=== PATIENT | male | born 1990 | race Caucasian/White ===

== ENCOUNTER 2016-04-15 08:18 | Day surgery (SDC) | payer OTHER ==
[2016-04-08 09:49] LABS: ABSOLUTE EOSINOPHILS # (AUTO) 0.1 10^3/uL (0.0-0.6); ABSOLUTE LYMPHOCYTES (AUTO) 1.8 10^3/uL (0.5-4.7); ABSOLUTE MONOCYTES (AUTO) 0.3 10^3/uL (0.1-1.4); ABSOLUTE NEUT (AUTO) 2.6 10^3/uL (1.7-8.2); BASOPHILS % (AUTO) 0.4 % (0-2); EOSINOPHILS % (AUTO) 1.4 % (0-6); HEMATOCRIT 42.4 % (37.9-51.0); HEMOGLOBIN 14.6 g/dL (13.5-17.0); HGB HCT DIFFERENCE 1.4; MEAN CORPUSCULAR HEMOGLOBIN 29.5 pg (27.0-33.4); MEAN CORPUSCULAR HGB CONC 34.4 g/dL (32.0-36.0); MEAN CORPUSCULAR VOLUME 86 fl (80-97); MONOCYTES % (AUTO) 6.4 % (3-13); RED BLOOD COUNT 4.95 10^6/uL (4.35-5.55); RED CELL DISTRIBUTION WIDTH 12.5 % (11.5-14.0); SEGMENTED NEUTROPHILS % (AUTO) 54.8 % (42-78); WHITE BLOOD COUNT 4.8 10^3/uL (4.0-10.5)
[2016-04-08 10:02] LABS: APPEARANCE,URINE CLEAR; BILIRUBIN,URINE NEGATIVE (NEGATIVE); GLUCOSE, URINE NEGATIVE (NEGATIVE); KETONES,URINE NEGATIVE (NEGATIVE); LEUKOCYTE ESTERASE,URINE NEGATIVE (NEGATIVE); NITRITE,URINE NEGATIVE (NEGATIVE); PROTEIN,URINE NEGATIVE (NEGATIVE); URINE SPECIFIC GRAVITY 1.011; UROBILINOGEN,URINE NEGATIVE mg/dL (<2.0)
[2016-04-08 10:18] LABS: ANION GAP 11 (5-19); BLOOD UREA NITROGEN 11 mg/dL (7-20); CALCIUM 9.5 mg/dL (8.4-10.2); CARBON DIOXIDE 30 mmol/L (22-30); CHLORIDE 103 mmol/L (98-107); CREATININE RESULT 1.05 mg/dL (0.52-1.25); GLUCOSE 89 mg/dL (75-110); POTASSIUM 4.2 mmol/L (3.6-5.0); SODIUM 144.4 mmol/L (137-145)
--- NOTE | 2016-04-08 10:59 | EKG REPORT ---
SEVERITY:- NORMAL ECG - SINUS RHYTHM : Confirmed by: Abbey Crawford 08-Apr-2016 10:58:34
[~2016-04-15 08:18] MED LIST: BUPIVACAINE HCL 0.5 % INJ/PF 30 ML SDV ONE; CEFAZOLIN 2 GM/D5W RTU 2 GM/50 ML RTUPB IV PRN; RINGERS SOLUTION,LACTATED 1,000 ML IV PRN
[2016-04-15] MEDS ORDERED: MEPERIDINE HCL/PF INJ 25 MG/1 ML DISP.SYRIN IV PRN ×2 (09:47→12:56)
[2016-04-15] MEDS ORDERED: FENTANYL CITRATE INJ/PF 100 MCG/2 ML AMPUL IV PRN ×6 (09:47→12:56)
[2016-04-15] MEDS ORDERED: ONDANSETRON HCL INJ/PF 4 MG/2 ML SDV IV PRN ×2 (09:47→12:29)
[2016-04-15] MEDS ORDERED: PROMETHAZINE HCL INJ 25 MG/1 ML VIAL IV PRN ×4 (09:47→12:56)
[2016-04-15] MEDS ORDERED: DIPHENHYDRAMINE HCL 50 MG/ML VIAL IV PRN ×2 (09:47→12:56)
[2016-04-15] MEDS ORDERED: MORPHINE SULFATE 10 MG/ML INJ IV PRN ×3 (09:47→12:56)
[2016-04-15] MEDS ORDERED: DEXMEDETOMIDINE INJ 80 MCG/20 ML VIAL IV ONE (10:44)
[2016-04-15] MEDS ORDERED: MIDAZOLAM 2 MG/2 ML INJ ONE (10:44)
[2016-04-15] MEDS ORDERED: ACETAMINOPHEN 100 ML IV ONE (10:44)
[2016-04-15] MEDS ORDERED: PROPOFOL INJ 200 MG/20 ML VIAL IV ONE (10:44)
[2016-04-15] MEDS ORDERED: FENTANYL CITRATE INJ/PF 250 MCG/5 ML AMPULE ONE (10:44)
[2016-04-15] MEDS ORDERED: OXYCODONE-ACETAMINOPHEN 5-325 MG TABLET PO PRN (12:29)
--- NOTE | 2016-04-15 12:32 | PDOC DISCHARGE SUMMARY ---
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 Sebas Ortiz @ [facility] to be seen in 10-14 days or as scheduled [place]: [place]: [place]: Keep splint clean/dry/intact. Ice and elevate May begin finger range of motion attempting to make full fist. Stool softener of choice when on pain medication. Prescriptions: Oxycodone HCl/Acetaminophen [Percocet 5-325 mg Tablet] 1 - 2 tab PO ASDIR PRN # 50 tablet PRN Reason: Discharge Diet: As Tolerated Respiratory Treatments at Home: Deep Breathing/Coughing Discharge Activity: No Lifting Over 10 Pounds, No Lifting/Push/Pulling Report the Following to Your Physician Immediately: Increase in Pain, Fever over 101 Degrees, Unusual Bleeding, Redness, Swelling, Warmth, Increased Soreness, Drainage-Foul Smelling, Numbness, Tingling Sensation
[2016-04-15] MEDS: FENTANYL CITRATE INJ/PF 100 MCG/2 ML AMPUL ONE ×2 (12:34→12:39)
--- NOTE | 2016-04-15 12:40 | Operative Report ---
Operative Report DATE OF SURGERY: 04/15/16 PREOPERATIVE DIAGNOSIS: Sagittal Band Insufficiency w/ Extensor Instability Right Index/Middle Finger POSTOPERATIVE DIAGNOSIS: Same OPERATION: Sagittal Band Reconstruction Right Index/Middle Digits (Fowler Technique) SURGEON: RENNY SCOTT ANESTHESIA: GA COMPLICATIONS: None ESTIMATED BLOOD LOSS: Minimal PROCEDURE: ndication for above procedure: 25-year-old male who presents with office with dislocation of his extensor tendons of the left and right middle and index finger. Patient denied any traumatic injury but had been going on for years and causes him discomfort especially with gripping objects. Patient underwent left sagittal band reconstruction successfully and now would like to proceed with operative intervention on the right. At that point we discussed treatment options including operative versus nonoperative intervention. Risk and benefits were explained to the patient patient verbalized understanding consented for the procedure. Procedure In Detail: Patient was seen and evaluated in the preoperative holding area. The RIGHT upper extremity was initialized and marked. Patient received 2g of Ancef IV for bacterial prophylaxis. Patient was taken back to the operative room where transferred to the operative table and placed under general anesthesia. Once they were adequately anesthetized a nonsterile tourniquet was placed on the upper extremity. A surgical team debriefing was performed ensuring all instrumentation was available, the surgical procedure was discussed with possible concerns reviewed. The upper extremity was prepped with chlorhexidine and alcohol and draped in a sterile fashion. A timeout was done identifying correct patient, procedure and extremity everyone in attendance agree with this and verbalized no concerns. The extremity was exsanguinated the tourniquet was inflated to 200 mmHg. A curvilinear skin incision was made centered over the MCP joint of the middle finger. Blunt dissection was done through the soft tissues exposing the extensor tendon. Under direct visualization with flexion of the MCP joint there was evidence of ulnar subluxation of the EDC tendons. At this point using the Fowler reconstruction technique was done splitting the radial one third of the EDC establishing a proximally based slip. I then released a portion of the ulnar sagittal band. Dissection deep to the lumbrical musculature was done and the radial EDC slip was passed deep to the lumbrical tendon and secured to itself utilizing 2 horizontal mattress 3-0 Ethibond sutures. Passive flexion of the MCP joints demonstrated correction of the ulnar subluxation successful centering EDC tendon within the MCP head. Additional horizontal mattress Ethibond suture was placed at the disrupted radial sagittal band. I also imbricated the distal aspect of the extensor mechanism with interrupted horizontal mattress at the level of the proximal phalanx. With passive flexion-extension of the wrist there was no evidence of recurrent subluxation and normal MCP joint and PIP joint extension. The wound was copiously irrigated with normal saline and turned my attention to the index finger. A curvilinear incision was made of the MCP joint of the index finger. Blunt dissection was performed exposing extensor tendon. Under direct visualization once again flexion MCP joint demonstrated ulnar subluxation of the EDC and EIP tendons. Once again utilizing the Fowler reconstruction technique was performed , the radial one third of the EDC tendon was released establishing a proximally based slip. Blunt dissection was done deep to the lumbrical tendon. Once again the radial based slip was passed deep to the lumbrical and sutured to itself utilizing 2 horizontal mattress 3-0 Ethibonds sutures. This successfully restored centralization of the tendon. Passive flexion-extension of the wrist was performed demonstrating full MCP joint flexion and extension with normal cascade and no residual subluxation. Tourniquet was deflated any peripheral vasculature was carefully coagulated with bipolar cautery. The wound was then copious irrigated with normal saline. Skin was closed a running subcuticular 3-0 Monocryl reinforced with Dermabond and Steri-Strips. 20 mL of 0.5% Marcaine without epinephrine was injected for postoperative pain control. Wound was dressed with 4 x 4's and a cast padding. Patient was placed in a volar plaster splint with the wrist at 20 extension and the MCP joints at 25 of hyperextension. Sponge counts, instrument counts, needle counts counts were correct. Patient was then awoken from anesthesia. Transferred from the operating room table to the operating room stretcher. There was no intraoperative complications patient tolerated procedure well stable to PACU. Postoperative plan: Patient will follow-up in the office in 2 weeks for wound check. Patient will present to occupational therapy prior to his follow-up appointment at which point he will be fitted for a thermoplastic splint maintaining the wrist at 20 of extension and the MCP joints at 20 of hyperextension. Patient may begin PIP joint range of motion. He will continue this wrist orthosis and finger orthosis for a total 4 weeks. At the four-week interval he will be transitioned to a finger orthosis begin wrist range of motion but continue the wrist orthosis at night. At the 6 week postoperative Patient will discontinue the wrist orthosis for continue finger orthosis for a total of 10 weeks postoperatively including during activity.
[2016-04-15] MEDS ORDERED: ONDANSETRON HCL INJ/PF 4 MG/2 ML SDV ONE (15:14)
[2016-04-15] MEDS ORDERED: KETOROLAC TROMETHAMINE 60 MG/2 ML SDV ONE (15:14)
[2016-04-15] MEDS ORDERED: GLYCOPYRROLATE INJ 0.4 MG/2 ML VIAL ONE (15:14)
[2016-04-15] MEDS ORDERED: LIDOCAINE 2% INJ-PF (20 MG/ML) 10 ML AMPUL ONE (15:14)
[2016-04-15] MEDS ORDERED: METOCLOPRAMIDE HCL INJ/PF 10 MG/2 ML SDV ONE (15:14)
[2016-04-15] MEDS ORDERED: DEXAMETHASONE SOD PHOSPHATE INJ 4 MG/1 ML VIAL ONE (15:14)
[2016-04-15 15:34] VITALS: BP 117/70
== END 2016-04-15 15:15 | disposition home or self-care (01) ==
LOC: OROUT 08:18
PROVIDERS: ATTEND Orthopaedic Surgery
PROC: 0LS70ZZ Reposition Right Hand Tendon, Open Approach (ICD-10-PCS; principal; 2016-04-15 11:00)
DX: S66.801D Unspecified injury of other specified muscles, fascia and tendons at wrist and hand level, right hand, subsequent encounter (principal); X58.XXXD Exposure to other specified factors, subsequent encounter; Z47.89 Encounter for other orthopedic aftercare; I10 Essential (primary) hypertension; Z79.899 Other long term (current) drug therapy
CPT/HCPCS: 93005; 36415; 85025; 80048; 81001; 71020; 93010; 26437; J2250; J1100; J1885; J3010 ×2; J2765; J2270; J2405; J2704; J3490 ×2; J0690; J0131; 1810

== ENCOUNTER → 2016-09-17 | Outpatient (CLI) | payer OTHER ==
[2016-09-17 14:05] LABS: ANION GAP 10 (5-19); BLOOD UREA NITROGEN 13 mg/dL (7-20); CALCIUM 9.4 mg/dL (8.4-10.2); CARBON DIOXIDE 23 mmol/L (22-30); CHLORIDE 107 mmol/L (98-107); CREATININE RESULT 1.36 mg/dL (0.52-1.25); GLUCOSE 90 mg/dL (75-110); POTASSIUM 4.8 mmol/L (3.6-5.0)
--- NOTE | 2016-09-17 19:43 | EKG REPORT ---
SEVERITY:- NORMAL ECG - SINUS RHYTHM : Confirmed by: Andrei Tyson MD 17-Sep-2016 19:42:48
== END ==
LOC: OD 12:41
PROVIDERS: ATTEND Orthopaedic Surgery
DX: Z01.810 Encounter for preprocedural cardiovascular examination (principal); Z01.812 Encounter for preprocedural laboratory examination
CPT/HCPCS: 36415; 80048; 93005; 93010